=== PATIENT | female | born 1960 | race Caucasian/White ===

== ENCOUNTER 2020-09-23 06:38 | Day surgery (SDC) | payer BC, OTHER ==
[2020-09-16 10:39] LABS: Basophils # (auto) 0.1 10 ^3/uL (0-0.2); Basophils % (auto) 1.1 % (0.0-2.0); Eosinophils # (auto) 0.1 10 ^3/uL (0-0.8); Eosinophils % (auto) 1.9 % (0.0-7.0); Hematocrit 43.1 % (36.0-46.0); Hemoglobin 14.5 g/dL (12.2-16.2); Lymphocytes # (auto) 1.5 10 ^3/uL (0.4-5.4); Lymphocytes % (auto) 28.2 % (10.0-50.0); Mean Corpuscular Hemoglobin 31.8 pg (28.0-32.0); Mean Corpuscular Hgb Conc. 33.6 g/dL (32.0-36.0); Mean Corpuscular Volume 94.7 fL (80.0-100.0); Monocytes # (auto) 0.5 10 ^3/uL (0-1.3); Monocytes % (auto) 9.3 % (0.0-12.0); Neutrophils # (auto) 3.2 10 ^3/uL (1.6-8.6); Neutrophils % (auto) 59.5 % (37.0-80.0); Nucleated Red Blood Cells % 0.2 %; Red Blood Cells 4.55 10^6/uL (4.0-5.20); Red Cell Distribution Width 13.4 % (11.8-14.3); White Blood Cell 5.4 10^3/uL (4.4-10.8)
[2020-09-16 10:50] LABS: Partial Thromboplastin Time 28.8 sec (23.0-31.2)
[2020-09-16 10:59] LABS: Urine Bacteria NONE SEEN /hpf (None Seen); Urine Blood Negative /uL (Negative); Urine Specific Gravity 1.003 (1.001-1.035); Urine WBC <1 /hpf (0 - 5)
[2020-09-16 11:04] LABS: Potassium 3.9 mmol/L (3.5-5.1)
[2020-09-16 11:10] LABS: BUN/Creatinine Ratio 14.3; Bilirubin, Total 0.4 mg/dL (0.2-1.0); Calcium 9.1 mg/dL (8.5-10.1); Total Protein 8.3 g/dL (6.4-8.2)
[~2020-09-23] VITALS: Ht 162.6 cm; Wt 61.2 kg
[~2020-09-23 06:38] MED LIST: B-COCAP4 OR; CALC1WAF2 PO; CHOL20007 PO; IBUP400T22 PO; MIRA50TA PO; MULT1CAP25 PO; MULTCHW PO; NUTR1TAB PO; PHYT100T PO; TOLT2CAP PO; VITA80009 PO; ZEAX5POW XX; [UNRECOGNIZED DRUG - CODE] EX; [UNRECOGNIZED DRUG - CODE] OR
[2020-09-23] MEDS ORDERED: DexAMETHasone SOD PHOS 10MG/1ML VIAL INJ ONE (07:12)
[2020-09-23] MEDS ORDERED: MIDAZOLAM HCL 2MG/2ML 2ml VIAL (1mg/ml) ONE (07:12)
[2020-09-23] MEDS ORDERED: LIDOCAINE 2% (LOCAL ANESTH.) PF 5ml SDV ONE (07:12)
[2020-09-23] MEDS ORDERED: PROPOFOL 10 MG/ML 20 ML IV ONE (07:12)
[2020-09-23] MEDS ORDERED: fentaNYL CITRATE 100 MCG/2 ML VL ONE (07:12)
[2020-09-23] MEDS ORDERED: ONDANSETRON HCL 4 MG/2 ML VIAL ONE (07:12)
[2020-09-23] MEDS ORDERED: GLYCOPYRROLATE 0.2 MG/ML 1ML VIAL IV ONE (07:23)
[2020-09-23] MEDS ORDERED: ceFAZolin 1GM VL ONE (07:26)
[2020-09-23] MEDS ORDERED: LACTATED RINGER'S 1,000 ML IV SCH (07:45)
[2020-09-23] MEDS ORDERED: ONDANSETRON HCL 4 MG/2 ML VIAL IV PRN ×2 (07:45→08:15)
[2020-09-23] MEDS ORDERED: MEPERIDINE HCL (25 MG/ML) 1ML VIAL ONE (07:54)
[2020-09-23] MEDS ORDERED: NALOXONE HCL 0.4 MG/ML VIAL ONE (07:58)
[2020-09-23] MEDS ORDERED: FAMOTIDINE (10MG/ML) 2ML VL IV ONE (08:15)
[2020-09-23] MEDS ORDERED: HYDROmorphone HCL 2 MG/ML VL IV PRN (08:15)
[2020-09-23 09:05] VITALS: BP 106/59
== END 2020-09-23 09:30 | disposition home or self-care (01) ==
LOC: SUR 06:38
PROVIDERS: ATTEND Obstetrics & Gynecology
DX: N93.8 Other specified abnormal uterine and vaginal bleeding (principal); M19.90 Unspecified osteoarthritis, unspecified site; Z20.822 Contact with and (suspected) exposure to COVID-19; Z98.890 Other specified postprocedural states; Z88.8 Allergy status to other drugs, medicaments and biological substances
CPT/HCPCS: 36415; 58563; 80053; 81001; 84702; 85025; 85610; 85730; 87086; J0690; J1100; J1170; J2001; J2175; J2250; J2310; J2405; J2704; J3010; U0003